=== PATIENT | male | born 2000 | race Caucasian/White ===

== ENCOUNTER 2020-05-01 17:33 | Emergency (ER) | payer OTHER ==
[~2020-05-01] VITALS: Ht 195.6 cm; Wt 117.0 kg
[2020-05-01 17:38] VITALS: BP 160/89
[2020-05-01] MEDS ORDERED: KEFLEX500 M1 PO (18:10)
== END 2020-05-01 17:38 | disposition home or self-care (01) ==
LOC: ER 17:33
DX: S61.211A Laceration without foreign body of left index finger without damage to nail, initial encounter (principal); W26.0XXA Contact with knife, initial encounter; Y93.89 Activity, other specified; Y92.89 Other specified places as the place of occurrence of the external cause; Y99.8 Other external cause status